=== PATIENT | female | born 1935 | race Caucasian/White ===

== ENCOUNTER 2017-02-07 16:14 | Inpatient (IN) | payer MEDICARE, BC ==
[~2017-02-07] VITALS: Ht 157.5 cm; Wt 54.4 kg
[~2017-02-07 16:14] MED LIST: NKM
--- NOTE | 2017-02-07 16:41 | Emergency Room Report ---
History of Present Illness General Chief Complaint: Chest Pain Source: Patient, EMS Present Illness HPI 82YOF BIBEMS with left sided chest pain and nausea for 2 hours. Started in car after being at restaurant with family. Non-radiating pain, was 7.10. Assoc with nausea/vomit Denies SOB, fever/chills, sweating Was given ASA and nitro by EMS with improvement Currently just feels "weak." Denies known PMHx. Not on ASA. EMS rhytym strip showed NSR, LAFB, LVH Allergies: Coded Allergies: No Known Allergies (Unverified , 02/07/17) Patient History Past Medical History: none Past Surgical History: none Pertinent Family History: none Social History: Denies: smoking, alcohol use, drug use Now: No Immunizations: UTD Reviewed Nursing Documentation: PMH: Agreed, PSxH: Agreed Nursing Documentation-PMH Past Medical History: No Stated History Review of Systems All Other Systems: negative except mentioned in HPI Physical Exam Vital Signs Date Time Temp Pulse Resp B/P (MAP) Pulse Ox O2 Delivery O2 Flow Rate FiO2 02/07/17 16:07 97.3 63 20 141/56 99 Nasal Cannula 4.0 Sp02 EP Interpretation: reviewed, normal General Appearance: normal inspection, well appearing, no apparent distress, alert, GCS 15, non-toxic, other - Weak appearing elderly lady Head: normocephalic, atraumatic Eyes: bilateral eye PERRL, bilateral eye EOMI ENT: normal ENT inspection, hearing grossly normal, normal voice Neck: normal inspection, full range of motion, supple, no bony tend Respiratory: normal inspection, lungs clear, normal breath sounds, no respiratory distress, no retraction, no wheezing Cardiovascular #1: regular rate, rhythm, no edema, no gallop, no JVD, no murmur , no rub Gastrointestinal: normal inspection, normal bowel sounds, non tender, soft, no guarding, no hernia Genitourinary: no CVA tenderness Musculoskeletal: normal inspection, back normal, normal range of motion, Monika' s Sign negative Neurologic: normal inspection, alert, oriented x3, responsive, speech normal Psychiatric: normal inspection, judgement/insight normal, mood/affect normal Skin: normal inspection, normal color, no rash Medical Decision Making Medicare Attestation I Matt Neves MD hereby attest that the medical record entry for date of service, 02/07/17 accurately reflects signatures/notations that I made in my capacity as MD when I treated/diagnosed the above listed Medicare beneficiary. I attest that this information is true, accurate and complete to the best of my knowledge. I understand that any falsification, omission, or concealment of material fact may subject me to administrative, civil, or criminal liability. This patient warrants hospital admission for extreme of age and has a condition that cannot be treated as outpatient. Diagnostic Impression: Primary Impression: Chest pain Qualified Codes: R07.89 - Other chest pain ER Course Labs: Mild lueks likely reactionary. H&H stable. Troponin 0. ECG with LAFB, LVH CXR no PTX or CHF or PNA Patient remains asymptomatic in ED Endorsed to PANEL Dr Gerard at 530pm for tele admit EKG Diagnostic Results Rate: normal Rhythm: other - Incomplete RBB, LAFB, LVH. ST Segments: other - TWI in V2 ASA given to the pt in ED: No Rhythm Strip Diag. Results EP Interpretation: yes Rate: 68 Rhythm: NSR, no PVC's, no ectopy Chest X-Ray Diagnostic Results Chest X-Ray Diagnostic Results : Chest X-Ray Ordered: Yes # of Views/Limited/Complete: 1 View Indication: Chest Pain EP Interpretation: Yes Interpretation: no consolidation, no effusion, no pneumothorax, no acute cardiopulmonary disease Impression: No acute disease Electronically Signed by: Dr Matt Neves MD Last Vital Signs Date Time Temp Pulse Resp B/P (MAP) Pulse Ox O2 Delivery O2 Flow Rate FiO2 02/07/17 16:07 97.3 63 20 141/56 99 Nasal Cannula 4.0 Status: improved Disposition: ADMITTED INPATIENT Condition: Serious MATT NEVES M.D. Feb 07, 2017 16:41
[2017-02-07 17:12] LABS: MEAN CORPUSCULAR HGB CONC 33.5 G/DL (32.0-36.0); MEAN CORPUSCULAR VOLUME 89 FL (80-99); MEAN PLATELET VOLUME 7.9 FL (6.5-10.1); PLATELET COUNT 207 K/UL (150-450); RED BLOOD COUNT 4.59 M/UL (4.20-5.40); RED CELL DISTRIBUTION WIDTH 12.2 % (11.6-14.8); WHITE BLOOD COUNT 12.1 K/UL (4.8-10.8)
[2017-02-07 17:18] LABS: ALANINE AMINOTRANSFERASE 13 U/L (3-33); ALBUMIN/GLOBULIN RATIO 1.4 (1.0-2.7); ANION GAP 12 (5-15); ASPARTATE AMINO TRANSFERASE 22 U/L (5-40); CALCIUM 9.6 mg/dL (8.6-10.2); CARBON DIOXIDE 26 mEQ/L (20-30); CHLORIDE 98 mEQ/L (98-107); CREATININE 0.8 mg/dL (0.5-0.9); HEMOLYSIS 3; POTASSIUM 4.1 mEQ/L (3.4-4.9); SODIUM 136 mEQ/L (135-145); TOTAL PROTEIN 7.1 g/dL (6.6-8.7); TROPONIN I < 0.30 ng/mL (<=0.30)
[2017-02-07 17:30] LABS: CKMB 1.9 ng/mL (< 3.8)
[2017-02-07 18:09] LABS: BAND NEUTROPHILS % (MANUAL) 0 % (0-8); BASOPHILS % (MANUAL) 1 % (0-2); EOSINOPHILS % (MANUAL) 0 % (0-3); LYMPHOCYTES % (MANUAL) 12 % (20-45); NEUTROPHILS % (MANUAL) 83 % (45-75); PLATELET ESTIMATE ADEQUATE; PLATELET MORPHOLOGY NORMAL; TOTAL CELLS COUNTED 100
[2017-02-07] MEDS ORDERED: Enalaprilat 2.5mg/2ml Inj IV PRN (18:15)
[2017-02-07] MEDS ORDERED: Nitroglycerin Subl 0.4mg tab (Bottle Of 25) SL PRN (18:15)
[2017-02-07] MEDS ORDERED: Morphine Sulfate 2mg/ml Inj IVP PRN (18:15)
[2017-02-07] MEDS ORDERED: Ketorolac 30mg Inj IV PRN (18:15)
[2017-02-07] MEDS ORDERED: Diltiazem 25mg/5ml IV PRN (18:15)
[2017-02-07] MEDS ORDERED: Miralax 17gm pkt ORAL PRN (18:15)
[2017-02-07] MEDS ORDERED: DuoNeb 0.5-3(2.5)mg/3ml neb HHN PRN (18:15)
[2017-02-07 19:13] VITALS: BP 129/44
[2017-02-07 21:29] VITALS: BP 131/91
[2017-02-07] MEDS: Heparin 5000 units/ml inj SUBQ SCH (22:00)
[2017-02-07 22:35] VITALS: BP 135/70
[2017-02-08] VITALS (7 sets, daily range): BP systolic 104–139; BP diastolic 44–65
[2017-02-08 05:43] LABS: EOSINOPHILS % (AUTO) 0.7 % (0.0-3.0); LYMPHOCYTES % (AUTO) 28.9 % (20.0-45.0); MEAN CORPUSCULAR HEMOGLOBIN 29.4 PG (27.0-31.0); MEAN CORPUSCULAR HGB CONC 32.6 G/DL (32.0-36.0); MEAN CORPUSCULAR VOLUME 90 FL (80-99); MEAN PLATELET VOLUME 7.6 FL (6.5-10.1); MONOCYTES % (AUTO) 8.9 % (1.0-10.0); NEUTROPHILS % (AUTO) 60.5 % (45.0-75.0); PLATELET COUNT 227 K/UL (150-450); RED BLOOD COUNT 4.26 M/UL (4.20-5.40); WHITE BLOOD COUNT 6.5 K/UL (4.8-10.8)
[2017-02-08 06:00] LABS: CHOLESTEROL/HDL RATIO 3.4 (3.3-4.4); CRP QUANT 0.4 mg/dL (< 0.5); INR 0.9 (0.9-1.1); PROTHROMBIN TIME 9.9 SEC (9.30-11.50); TROPONIN I < 0.30 ng/mL (<=0.30)
[2017-02-08 06:11] LABS: THYROID STIMULATING HORMONE 2.58 uIU/mL (0.300-4.500)
[2017-02-08] MEDS: Aspirin Baby 81mg ORAL SCH (10:22)
[2017-02-08] MEDS: Heparin 5000 units/ml inj SUBQ SCH ×2 (10:40→21:00)
--- NOTE | 2017-02-08 10:40 | Diagnostic Imaging Report ---
Indication: Dyspnea Comparison: None A single view chest radiograph was obtained. Findings: Cardiomediastinal appearance is within normal limits for age. Pulmonary vascularity is appropriate. The diaphragmatic contour is smooth and costophrenic angles are sharp. No pleural effusions are identified. The bones are unremarkable. Impression: No acute findings
--- NOTE | 2017-02-08 15:16 | Consultation ---
History of Present Illness General Date patient seen: Feb 07, 2017 Chief Complaint: Chest Pain Referring physician: Dr. Cleveland Reason for Consultation: chest pain Present Illness HPI 82 year old without any pmhx presented to ER with CC of left sided chest pain and nausea for 2 hours. The pain was on-radiating pain, was 7.10, associated with nausea/vomit Denies SOB, fever/chills, sweating. she was given ASA and nitro by EMS with improvement. she is admitted to telemetry for evaluation of ACS. Allergies: Coded Allergies: No Known Allergies (Unverified , 02/07/17) Medication History Scheduled No Known Medications* (NKM - No Known Medications*), 0 ., (Reported) Patient History Healthcare decision maker Resuscitation status Full Code Advanced Directive on File Past Medical/Surgical History Past Medical/Surgical History: (1) No pertinent past medical history Review of Systems Constitutional: Reports: no symptoms Eye: Reports: no symptoms ENT: Reports: no symptoms Respiratory: Reports: no symptoms Cardiovascular: Reports: no symptoms Physical Exam General Appearance: WD/WN Lines, tubes and drains: peripheral, trach Neck: non-tender, normal alignment Respiratory/Chest: chest wall non-tender, lungs clear Breasts: no masses Cardiovascular/Chest: normal peripheral pulses, normal rate Abdomen: hyperactive bowel sounds Genitourinary/Rectal: normal genital exam Extremities: normal range of motion, non-tender Last 24 Hour Vital Signs Date Time Temp Pulse Resp B/P (MAP) Pulse Ox O2 Delivery O2 Flow Rate FiO2 02/08/17 12:00 97.3 74 20 121/57 98 Room Air 02/08/17 08:23 73 16 Room Air 02/08/17 08:00 96.8 60 18 126/58 98 Room Air 02/08/17 04:00 97.5 61 16 139/65 97 Room Air 02/08/17 04:00 77 02/08/17 00:00 74 02/08/17 00:00 97.5 68 12 104/44 97 Room Air 02/07/17 22:35 97.5 75 18 135/70 97 Room Air 02/07/17 21:30 97.9 73 21 131/91 100 Room Air 4.0 02/07/17 21:29 97.9 73 21 131/91 100 Room Air 02/07/17 19:13 98.4 68 18 129/44 96 02/07/17 16:53 60 16 Room Air 02/07/17 16:07 97.3 63 20 141/56 99 Nasal Cannula 4.0 Laboratory Tests Test 02/07/17 16:49 02/07/17 17:25 02/08/17 04:15 White Blood Count 12.1 K/UL (4.8-10.8) H 6.5 K/UL (4.8-10.8) Red Blood Count 4.59 M/UL (4.20-5.40) 4.26 M/UL (4.20-5.40) Hemoglobin 13.7 G/DL (12.0-16.0) 12.5 G/DL (12.0-16.0) Hematocrit 41.0 % (37.0-47.0) 38.4 % (37.0-47.0) Mean Corpuscular Volume 89 FL (80-99) 90 FL (80-99) Mean Corpuscular Hemoglobin 30.0 PG (27.0-31.0) 29.4 PG (27.0-31.0) Mean Corpuscular Hemoglobin Concent 33.5 G/DL (32.0-36.0) 32.6 G/DL (32.0-36.0) Red Cell Distribution Width 12.2 % (11.6-14.8) 12.0 % (11.6-14.8) Platelet Count 207 K/UL (150-450) 227 K/UL (150-450) Mean Platelet Volume 7.9 FL (6.5-10.1) 7.6 FL (6.5-10.1) Neutrophils (%) (Auto) % (45.0-75.0) 60.5 % (45.0-75.0) Lymphocytes (%) (Auto) % (20.0-45.0) 28.9 % (20.0-45.0) Monocytes (%) (Auto) % (1.0-10.0) 8.9 % (1.0-10.0) Eosinophils (%) (Auto) % (0.0-3.0) 0.7 % (0.0-3.0) Basophils (%) (Auto) % (0.0-2.0) 1.0 % (0.0-2.0) Differential Total Cells Counted 100 Neutrophils % (Manual) 83 % (45-75) H Lymphocytes % (Manual) 12 % (20-45) L Monocytes % (Manual) 4 % (1-10) Eosinophils % (Manual) 0 % (0-3) Basophils % (Manual) 1 % (0-2) Band Neutrophils 0 % (0-8) Platelet Estimate Adequate Platelet Morphology Normal Red Blood Cell Morphology Normal Sodium Level 136 mEQ/L (135-145) Potassium Level 4.1 mEQ/L (3.4-4.9) Chloride Level 98 mEQ/L (98-107) Carbon Dioxide Level 26 mEQ/L (20-30) Anion Gap 12 (5-15) Blood Urea Nitrogen 19 mg/dL (7-23) Creatinine 0.8 mg/dL (0.5-0.9) Estimat Glomerular Filtration Rate mL/min (>60) Glucose Level 120 mg/dL (74-106) H Calcium Level 9.6 mg/dL (8.6-10.2) Total Bilirubin 0.4 mg/dL (0.0-1.2) Aspartate Amino Transf (AST/SGOT) 22 U/L (5-40) Alanine Aminotransferase (ALT/SGPT) 13 U/L (3-33) Alkaline Phosphatase 91 U/L (35-104) Total Creatine Kinase 77 U/L (26-140) Creatine Kinase MB 1.9 ng/mL (< 3.8) Creatine Kinase MB Relative Index 2.4 Troponin I < 0.30 ng/mL (<=0.30) < 0.30 ng/mL (<=0.30) Pro-B-Type Natriuretic Peptide 274 pg/mL (0-450) Total Protein 7.1 g/dL (6.6-8.7) Albumin 4.2 g/dL (3.5-5.2) Globulin 2.9 g/dL Albumin/Globulin Ratio 1.4 (1.0-2.7) Urine Opiates Screen Negative (NEGATIVE) Urine Barbiturates Screen Negative (NEGATIVE) Phencyclidine (PCP) Screen Negative (NEGATIVE) Urine Amphetamines Screen Negative (NEGATIVE) Urine Benzodiazepines Screen Negative (NEGATIVE) Urine Cocaine Screen Negative (NEGATIVE) Urine Marijuana (THC) Screen Negative (NEGATIVE) Prothrombin Time 9.9 SEC (9.30-11.50) Prothromb Time International Ratio 0.9 (0.9-1.1) Activated Partial Thromboplast Time 25 SEC (23-33) C-Reactive Protein, Quantitative 0.4 mg/dL (< 0.5) Triglycerides Level 65 mg/dL (< 150) Cholesterol Level 202 mg/dL (< 200) H LDL Cholesterol 129 mg/dL (60-99) H HDL Cholesterol 60 mg/dL (> 60) Cholesterol/HDL Ratio 3.4 (3.3-4.4) Thyroid Stimulating Hormone (TSH) 2.580 uIU/mL (0.300-4.500) Height (Feet): 5 Height (Inches): 2.00 Weight (Pounds): 120 Medications Current Medications Medications (Trade) Dose Ordered Sig/Alexis Route PRN Reason Start Time Stop Time Status Last Admin Dose Admin Acetaminophen (Tylenol) 650 mg Q4H PRN ORAL FEVER 02/07/17 18:15 03/09/17 18:14 02/08/17 04:18 Albuterol/ Ipratropium (DuoNeb 0.5-3(2.5)mg/3ml) 3 ml Q4H PRN HHN Shortness of Breath 02/07/17 18:15 02/12/17 18:14 Aspirin (ASA) 162 mg DAILY ORAL 02/08/17 09:00 03/10/17 08:59 02/08/17 10:22 Diltiazem HCl (Cardizem) 10 mg Q1H PRN IV HR > 120 02/07/17 18:15 03/09/17 18:14 Enalaprilat (Vasotec) 2.5 mg Q6H PRN IV SBP > 160 02/07/17 18:15 03/09/17 18:14 Heparin Sodium (Porcine) (Heparin 5000 units/ml) 5,000 units EVERY 12 HOURS SUBQ 02/07/17 22:00 03/09/17 21:59 02/08/17 10:40 Morphine Sulfate (Morphine Sulfate) 2 mg Q4H PRN IVP severe Pain (Pain Scale 7-10) 02/07/17 18:15 02/14/17 18:14 Nitroglycerin (Ntg) 0.4 mg Every 5 Minutes PRN SL Prn Chest Pain 02/07/17 18:15 10/7/17 18:14 Ondansetron HCl (Zofran) 4 mg Q6H PRN IVP Nausea & Vomiting 02/07/17 18:15 03/09/17 18:14 Pantoprazole (Protonix) 40 mg DAILY ORAL 02/08/17 09:00 03/10/17 08:59 02/08/17 10:22 Polyethylene Glycol (Miralax) 17 gm DAILYPRN PRN ORAL Constipation 02/07/17 18:15 03/09/17 18:14 Temazepam (Restoril) 15 mg HSPRN PRN ORAL Insomnia 02/07/17 18:15 02/14/17 18:14 Assessment/Plan Problem List: (1) ACS (acute coronary syndrome) ICD Codes: I24.9 - Acute ischemic heart disease, unspecified SNOMED: [id number] Assessment/Plan serial ekg, troponin echo cardiology to see symptomatic treatment FRANCISCO HUA Feb 08, 2017 15:16
--- NOTE | 2017-02-08 15:31 | History & Physical ---
History and Physical History & Physicial job # [id number] Carlos Gerard MD Feb 08, 2017 15:31
--- NOTE | 2017-02-08 19:12 | Cardiology Progress Note ---
Assessment/Plan Assessment/Plan cp no mi not want to stay over week end ambualte in am iif not cp maybe ok to dc home nad have pt fuw with miguel thomas at [facility] Objective Last 24 Hour Vital Signs Date Time Temp Pulse Resp B/P (MAP) Pulse Ox O2 Delivery O2 Flow Rate FiO2 02/08/17 16:00 97.7 71 20 120/54 97 Nasal Cannula 02/08/17 16:00 73 02/08/17 12:00 66 02/08/17 12:00 97.3 74 20 121/57 98 Room Air 02/08/17 08:23 73 16 Room Air 02/08/17 08:00 96.8 60 18 126/58 98 Room Air 02/08/17 08:00 65 02/08/17 04:00 97.5 61 16 139/65 97 Room Air 02/08/17 04:00 77 02/08/17 00:00 74 02/08/17 00:00 97.5 68 12 104/44 97 Room Air 02/07/17 22:35 97.5 75 18 135/70 97 Room Air 02/07/17 21:30 97.9 73 21 131/91 100 Room Air 4.0 02/07/17 21:29 97.9 73 21 131/91 100 Room Air 02/07/17 19:13 98.4 68 18 129/44 96 Intake and Output 02/08/17 02/09/17 19:00 07:00 # Voids 3 Laboratory Tests Test 02/08/17 04:15 White Blood Count 6.5 K/UL (4.8-10.8) Red Blood Count 4.26 M/UL (4.20-5.40) Hemoglobin 12.5 G/DL (12.0-16.0) Hematocrit 38.4 % (37.0-47.0) Mean Corpuscular Volume 90 FL (80-99) Mean Corpuscular Hemoglobin 29.4 PG (27.0-31.0) Mean Corpuscular Hemoglobin Concent 32.6 G/DL (32.0-36.0) Red Cell Distribution Width 12.0 % (11.6-14.8) Platelet Count 227 K/UL (150-450) Mean Platelet Volume 7.6 FL (6.5-10.1) Neutrophils (%) (Auto) 60.5 % (45.0-75.0) Lymphocytes (%) (Auto) 28.9 % (20.0-45.0) Monocytes (%) (Auto) 8.9 % (1.0-10.0) Eosinophils (%) (Auto) 0.7 % (0.0-3.0) Basophils (%) (Auto) 1.0 % (0.0-2.0) Prothrombin Time 9.9 SEC (9.30-11.50) Prothromb Time International Ratio 0.9 (0.9-1.1) Activated Partial Thromboplast Time 25 SEC (23-33) Troponin I < 0.30 ng/mL (<=0.30) C-Reactive Protein, Quantitative 0.4 mg/dL (< 0.5) Triglycerides Level 65 mg/dL (< 150) Cholesterol Level 202 mg/dL (< 200) H LDL Cholesterol 129 mg/dL (60-99) H HDL Cholesterol 60 mg/dL (> 60) Cholesterol/HDL Ratio 3.4 (3.3-4.4) Thyroid Stimulating Hormone (TSH) 2.580 uIU/mL (0.300-4.500) AYLEEN ESCALANTE Feb 08, 2017 19:12
[2017-02-09] VITALS: BP 126/63
[2017-02-09 04:00] VITALS: BP 146/58
--- NOTE | 2017-02-09 04:30 | Consultation ---
DATE OF CONSULTATION: 02/08/2017 CHIEF COMPLAINT: Abdominal pain. HISTORY OF PRESENT ILLNESS: This is a pleasant 81-year-old female, who was brought by EMS complaining of left-sided chest pain and nausea for two hours prior to admission. Apparently, the patient was in a restaurant with her family and all of a sudden complained of some chest pain and felt nauseous. 911 was called, the EMS arrived. They gave her some aspirin and some nitroglycerin, which gave some improvement. Since then, the patient was transferred to ER at [facility]. PAST SURGICAL HISTORY: None. MEDICATIONS: Please see medication reconciliation list. ALLERGIES: No known drug allergy. SOCIAL HISTORY: The patient denies any tobacco, alcohol, or drug abuse. FAMILY HISTORY: Noncontributory. REVIEW OF SYSTEMS: A 10-point review of system was performed and pertinent positives in history of present illness. PHYSICAL EXAMINATION: VITAL SIGNS: Temperature is 97.7 degrees, pulse 70, respirations 20, blood pressure 120/54. HEENT: Normocephalic and atraumatic. Sclerae anicteric. NECK: Supple. No lymphadenopathy. CARDIOVASCULAR: Regular rate and rhythm. Plus S1 and S2. No obvious murmur. LUNGS: Clear to auscultation bilaterally. ABDOMEN: Soft and nontender. No rebound. No guarding. No peritoneal sign. EXTREMITIES: No cyanosis. No clubbing. No edema. NEUROLOGIC: Nonfocal. SKIN: No obvious rash. LABORATORY AND DIAGNOSTIC DATA: White blood cell 6.5, hemoglobin 12, hematocrit 38.4, and platelet count is 227,000. Chem-7, sodium 136, potassium 4.1, BUN is 19, creatinine 0.8, and glucose is 120. Troponin less than 0.3 x2. ASSESSMENT AND PLAN: This is a 81-year-old patient, admitted to the hospital complaining of chest pain and also nausea. At this time, there are no alarming signs or symptoms in terms of GI standpoint. There is no abnormal liver function test. There is no anemia. PLAN: Plan is to have the patient to be seen by Cardiology and followed by Cardiology. We will start the patient on Protonix. We will consider doing endoscopy on Saturday if the patient is cleared by Cardiology. I want to thank Dr. Gerard for this kind referral. Bal Rojelio Epps DR: Marquise JOB#: [id number] CC: Carlos Gerard M.D.; Fax#: [phone]
--- NOTE | 2017-02-09 04:45 | History and Physical Report ---
DATE OF ADMISSION: 02/07/2017 CHIEF COMPLAINT: Chest pain associated with nausea and vomiting. HISTORY OF PRESENT ILLNESS: This is a 81-year-old very delightful female with past medical history significant for right breast cancer, status post lumpectomy about 25 years ago with radiation therapy. The patient denies any history of coronary artery disease, diabetes, or high blood pressure, presented to emergency room, complained about the chest pain associated with nausea and vomiting about two hours prior to admission. The patient's pain started while she was in a car after she had a meal in a restaurant associated with the neighbor. No radiating pain. The pain was 7/10. Denies any nausea or vomiting. Denies any fever or chills. Shortly after initial evaluation in the field by EMS, the patient was transferred to the hospital. Nitroglycerin was given and aspirin was given en route to the hospital. After initial evaluation in the emergency room, the patient was admitted to the hospital with chest pain, possible acute coronary syndrome. PAST MEDICAL HISTORY/PAST SURGICAL HISTORY: Significant for right breast cancer, status post lumpectomy about 25 years ago and status post radiation therapy. MEDICATIONS: Medications at home, none. ALLERGIES: No known drug allergies. SOCIAL HISTORY: The patient denies smoking, alcohol, or drugs, follows up with the primary care at [facility] called Dr. Fuentes, who she sees once a year. FAMILY HISTORY: Father had a history of diabetes, and mother had a history of brain cancer, who also. REVIEW OF SYSTEMS: Mostly as above. Denies any dysuria, frequency, hematuria, or hematochezia. Denies any hemoptysis or hematochezia. Denies any suicidal or homicidal ideation. Complained of nausea and vomiting. Denies any loss of consciousness. Denies any double vision. PHYSICAL EXAMINATION: VITAL SIGNS: On admission from the ER, significant for temperature 97.3, pulse of 63, respirations 20, and blood pressure 141/56, repeated one was 129/44. GENERAL: The patient is awake, responsive, no acute distress. HEENT: Pupils are reactive to light. Extraocular movements are intact. NECK: Supple. No JVD. LUNGS: Good air entry. No wheezing or rales. HEART: S1 and S2. Regular rhythm. No gallops. ABDOMEN: Soft, nondistended, and nontender. Positive bowel sounds. RECTAL: Refused and deferred. GENITOURINARY: Refused and deferred. EXTREMITIES: No cyanosis, clubbing, or edema. NEUROLOGIC: Cranial nerves II through XII are grossly normal. The patient is moving all extremities. Gait is intact. PSYCHIATRIC: Mood and affect are intact. LABORATORY AND DIAGNOSTIC DATA: Laboratory on admission, WBC of 12.1, hemoglobin 13, hematocrit 41, and platelets 207,000. Sodium is 139, potassium 4.6, chloride 198, bicarbonate 26, BUN 19, creatinine 0.8, and glucose 120. First troponin is less than 0.03. CRP is 0.4. Pro-BNP of 274. Cholesterol is at 202. PT of 9.9, INR 0.9, and PTT of 25. Urine drug screen is all negative. Chest x-ray, no acute findings. EKG is significant for normal sinus rhythm, ventricular rate of 68, and left atrial enlargement, and incomplete right bundle-branch block. No ST-elevation was identified, left anterior fascicular block, left ventricular hypertrophy. Echocardiogram was done, preliminary result shows ejection fraction of 55% to 60% with no significant left ventricular hypertrophy, trace tricuspid regurgitation, and trace pulmonic regurgitation. ASSESSMENT: 1. Chest pain, possible acute coronary syndrome versus gastrointestinal etiology such as peptic ulcer versus gastroesophageal reflux disease. 2. History of right breast cancer, status post lumpectomy and radiation therapy. 3. Leukocytosis. PLAN: Admit the patient to telemetry. We will follow up with the Cardiology consultation, Pulmonary consultation with Dr. Abdalla. Serial cardiac enzymes. Monitor laboratory closely. Deep venous thrombosis prophylaxis. Heparin subcutaneous. Nitrostat as needed for chest pain and we will monitor laboratory in the morning. Carlos Gerard M.D. DR: Rose JOB#: [id number] CC:
--- NOTE | 2017-02-09 07:15 | Consultation ---
REFERRING PHYSICIAN: Carlos Gerard M.D. REASON FOR REFERRAL: Chest pain. HISTORY OF PRESENT ILLNESS: This is a 81-year-old female who presented to the hospital because of chest pain. She does not have any chest pain right now. The pain she is not able to explain is above the left breast, it was intermittent at times. When she was brought to the emergency room by a neighbor and on the drive here, she apparently got nauseated and vomited. The emergency room physician's data indicated the patient had chest pain for approximately 2 hours, it started in the car after being in a restaurant with family members, and then subsequently was brought in by EMS because of the left pain, but that did not completely clear. The patient tells me the pain was not radiating. There was no associated shortness of breath. No PND. No orthopnea. No palpitations. She usually does not walk very much, but what ever walking she does, does not cause any shortness of breath or chest pains. There is no PND. No orthopnea. She has never had any heart problems before. PAST MEDICAL HISTORY: Prediabetes and borderline hyperlipidemia. No heart attack. No cancer. No stroke, hepatitis, tuberculosis, asthma, emphysema, ulcers, kidney problems, liver problems, thyroid problems, anemia, arthritis, and no prior heart problems. She is usually followed by [facility]. SOCIAL HISTORY: She does not smoke and does not drink alcoholic beverages. She lives by herself. REVIEW OF SYSTEMS: Gastrointestinal: Negative. Genitourinary: Negative. Pulmonary: Negative. Constitution: Negative. Neurological: Negative. Cardiac: As mentioned in the history of present illness. PHYSICAL EXAMINATION: GENERAL: Elderly female, in no respiratory distress. NECK: Supple. No jugular venous distention. No abdominojugular reflux noted. LUNGS: Clear to auscultation and percussion. CARDIAC: S1 is normal. S2 is normal. Regular rate and rhythm. No heaves, thrills, or gallops noted. CHEST WALL: Nontender to reproduce the patient's chest pain. ABDOMEN: Soft and nontender. Positive bowel sounds. EXTREMITIES: There is no clubbing, cyanosis, or edema. LABORATORY AND DIAGNOSTIC DATA: The chest x-ray shows no acute findings. Her echocardiogram, preliminary report, shows ejection fraction of 55% to 60%, no segmental wall motion abnormalities. Her electrocardiogram also shows incomplete right bundle-branch conduction defect with some changes in the T-waves in V1 and V2. There are no old EKGs for me to compare. Her cardiac enzymes, 2 sets are negative. ProBNP was 274. Total cholesterol was 202 with LDL of 129, HDL of 60. TSH of 2.58. Sodium 136, potassium 4.1, chloride 98, and bicarbonate 26. White count of 6.9, hemoglobin of 12.5, platelet count of 227 with 83 polys, 12 lymphs were noted. INR 0.9 and PTT of 25. Toxicology screen was negative. ASSESSMENT: 1. Atypical chest pain. No evidence of myonecrosis. 2. Borderline hypertension. 3. Borderline diabetes. PLAN: Dr. Gerard, this patient was seen in cardiac consultation. The patient's preliminary echocardiogram is unremarkable. Her EKG shows some T-wave abnormalities, which may be related to incomplete right bundle branch that she is having. She no longer has the chest pain. She does not want to stay in the hospital beyond tomorrow. She wants to leave. If she is able to ambulate around the [place] and if she does not have any chest pain, I think it may be okay for her to have future testing done by her usual doctors at [facility] where she usually is followed. If she has any chest pains, to stay for stress testing here. Jean Paul Ayoub M.D. DR: Leticia JOB#: [id number] CC:
--- NOTE | 2017-02-09 07:34 | Pulmonology Progress Note ---
Assessment/Plan Assessment/Plan ASSESSMENT chest pain r/o ACS leukocytosis-resolved hypercholesteremia PLAN OF CARE tele serial troponin negative ECG with NSR no acute ST changes seen and evaluated by cardio patient was r/o for acute [place] ECHO with wET96-39% and RVSP of 14 DVT prophylaxis pain management with Nitro prn and Ms- pain free lipid panel with elevated TC 202 and LDL 129 educated on low fat low cholesterol diet recommended to start statin but pt reluctant and will talk with her PCP tox screen negative CXR negative O2 HHN prn pulse ox stable on RA patient does not want to stay over weekend for stress test per cardio can be dc if walks in hallway without chest pain and fup next week by PMD/cardio in [facility] case discussed and evaluated by supervising physician Subjective Allergies: Coded Allergies: No Known Allergies (Unverified , 02/07/17) Subjective denies CP, SOB slept well SR on tele Objective Last 24 Hour Vital Signs Date Time Temp Pulse Resp B/P (MAP) Pulse Ox O2 Delivery O2 Flow Rate FiO2 02/09/17 04:00 97.6 56 19 146/58 97 Room Air 02/09/17 03:37 61 02/09/17 00:00 70 02/09/17 00:00 97.6 71 19 126/63 97 Room Air 02/08/17 20:12 98.0 74 20 139/63 97 Room Air 02/08/17 20:00 71 02/08/17 19:52 70 16 Room Air 02/08/17 16:00 97.7 71 20 120/54 97 Nasal Cannula 02/08/17 16:00 73 02/08/17 12:00 66 02/08/17 12:00 97.3 74 20 121/57 98 Room Air 02/08/17 08:23 73 16 Room Air 02/08/17 08:00 96.8 60 18 126/58 98 Room Air 02/08/17 08:00 65 General Appearance: no acute distress HEENT: normocephalic, atraumatic, anicteric, mucous membranes moist, PERRL Respiratory/Chest: lungs clear, no respiratory distress, no accessory muscle use Cardiovascular: normal peripheral pulses, normal rate, regular rhythm, no JVD Abdomen: normal bowel sounds, soft, non tender, non distended Genitourinary: normal external genitalia Extremities: no edema, pedal pulses normal Skin: no rash Neurologic/Psychiatric: no motor/sensory deficits, alert, oriented x 3, responsive, normal mood/affect Lymphatic: no neck adenopathy Musculoskeletal: normal muscle bulk Current Medications Medications (Trade) Dose Ordered Sig/Alexis Route PRN Reason Start Time Stop Time Status Last Admin Dose Admin Acetaminophen (Tylenol) 650 mg Q4H PRN ORAL FEVER 02/07/17 18:15 03/09/17 18:14 02/08/17 04:18 Albuterol/ Ipratropium (DuoNeb 0.5-3(2.5)mg/3ml) 3 ml Q4H PRN HHN Shortness of Breath 02/07/17 18:15 02/12/17 18:14 Aspirin (ASA) 162 mg DAILY ORAL 02/08/17 09:00 03/10/17 08:59 02/08/17 10:22 Diltiazem HCl (Cardizem) 10 mg Q1H PRN IV HR > 120 02/07/17 18:15 03/09/17 18:14 Enalaprilat (Vasotec) 2.5 mg Q6H PRN IV SBP > 160 02/07/17 18:15 03/09/17 18:14 Heparin Sodium (Porcine) (Heparin 5000 units/ml) 5,000 units EVERY 12 HOURS SUBQ 02/07/17 22:00 03/09/17 21:59 02/08/17 10:40 Morphine Sulfate (Morphine Sulfate) 2 mg Q4H PRN IVP severe Pain (Pain Scale 7-10) 02/07/17 18:15 02/14/17 18:14 Nitroglycerin (Ntg) 0.4 mg Every 5 Minutes PRN SL Prn Chest Pain 02/07/17 18:15 03/09/17 18:14 Ondansetron HCl (Zofran) 4 mg Q6H PRN IVP Nausea & Vomiting 02/07/17 18:15 03/09/17 18:14 Pantoprazole (Protonix) 40 mg DAILY ORAL 02/08/17 09:00 03/10/17 08:59 02/08/17 10:22 Polyethylene Glycol (Miralax) 17 gm DAILYPRN PRN ORAL Constipation 02/07/17 18:15 03/09/17 18:14 Temazepam (Restoril) 15 mg HSPRN PRN ORAL Insomnia 02/07/17 18:15 02/14/17 18:14 [place] ([facility]),Niurka GARCIA Feb 09, 2017 07:34
[2017-02-09 08:35] VITALS: BP 125/58
[2017-02-09] MEDS: Heparin 5000 units/ml inj SUBQ SCH (09:00)
[2017-02-09] MEDS: Aspirin Baby 81mg ORAL SCH (09:59)
[2017-02-09 12:33] VITALS: BP 138/62
--- NOTE | 2017-02-09 14:20 | Cardiology Progress Note ---
Assessment/Plan Status: stable, progressing Status Narrative chest pain, n/v - Hemodynamically stable Symptoms have resolved - uncertain if cardiac origin. Pt has ruled out for myocardial infarction w/ negative troponins and EKGs Assessment/Plan Continue asa, ppi consider starting statin Outpt stress testing to r/o ischemia Subjective ROS Limited/Unobtainable: No Subjective Cardiology for Dr. Ayoub No chest pain, n/v or dyspnea, Objective Last 24 Hour Vital Signs Date Time Temp Pulse Resp B/P (MAP) Pulse Ox O2 Delivery O2 Flow Rate FiO2 02/09/17 12:33 97.0 62 18 138/62 98 Room Air 02/09/17 08:35 97.2 60 18 125/58 99 Room Air 02/09/17 08:18 69 18 Room Air 02/09/17 04:00 97.6 56 19 146/58 97 Room Air 02/09/17 03:37 61 02/09/17 00:00 70 02/09/17 00:00 97.6 71 19 126/63 97 Room Air 02/08/17 20:12 98.0 74 20 139/63 97 Room Air 02/08/17 20:00 71 02/08/17 19:52 70 16 Room Air 02/08/17 16:00 97.7 71 20 120/54 97 Nasal Cannula 02/08/17 16:00 73 General Appearance: WD/WN, no apparent distress, alert EENT: PERRL/EOMI Neck: supple, no JVD Rhythm: NSR Cardiovascular: normal rate, regular rhythm Respiratory/Chest: lungs clear Abdomen: non tender, soft Extremities: non-tender, no swelling Intake and Output 02/09/17 02/10/17 19:00 07:00 Intake Total 240 ml Balance 240 ml Intake Oral 240 ml # Voids 1 ARIEL GAMEZ Feb 09, 2017 14:20
[2017-02-09] MEDS ORDERED: NS 275ml ONE (15:43)
[2017-02-09] MEDS ORDERED: Tubing IV Secondary IV ONE (15:43)
[2017-02-09 15:55] VITALS: BP 127/56
--- NOTE | 2017-02-09 16:32 | Internal Med Progress Note ---
Subjective Date of Service: Feb 09, 2017 Physician Name Johnson,Noel Attending Physician Carlos Gerard MD Current Medications Medications (Trade) Dose Ordered Sig/Alexis Route PRN Reason Start Time Stop Time Status Last Admin Dose Admin Acetaminophen (Tylenol) 650 mg Q4H PRN ORAL FEVER 02/07/17 18:15 03/09/17 18:14 02/08/17 04:18 Albuterol/ Ipratropium (DuoNeb 0.5-3(2.5)mg/3ml) 3 ml Q4H PRN HHN Shortness of Breath 02/07/17 18:15 02/12/17 18:14 Aspirin (ASA) 162 mg DAILY ORAL 02/08/17 09:00 03/10/17 08:59 02/09/17 09:59 Diltiazem HCl (Cardizem) 10 mg Q1H PRN IV HR > 120 02/07/17 18:15 03/09/17 18:14 Enalaprilat (Vasotec) 2.5 mg Q6H PRN IV SBP > 160 02/07/17 18:15 03/09/17 18:14 Heparin Sodium (Porcine) (Heparin 5000 units/ml) 5,000 units EVERY 12 HOURS SUBQ 02/07/17 22:00 03/09/17 21:59 02/08/17 10:40 Morphine Sulfate (Morphine Sulfate) 2 mg Q4H PRN IVP severe Pain (Pain Scale 7-10) 02/07/17 18:15 02/14/17 18:14 Nitroglycerin (Ntg) 0.4 mg Every 5 Minutes PRN SL Prn Chest Pain 02/07/17 18:15 03/09/17 18:14 Ondansetron HCl (Zofran) 4 mg Q6H PRN IVP Nausea & Vomiting 02/07/17 18:15 03/09/17 18:14 Pantoprazole (Protonix) 40 mg DAILY ORAL 02/08/17 09:00 03/10/17 08:59 02/08/17 10:22 Polyethylene Glycol (Miralax) 17 gm DAILYPRN PRN ORAL Constipation 02/07/17 18:15 03/09/17 18:14 Temazepam (Restoril) 15 mg HSPRN PRN ORAL Insomnia 02/07/17 18:15 02/14/17 18:14 Allergies: Coded Allergies: No Known Allergies (Unverified , 02/07/17) ROS Limited/Unobtainable: No Constitutional: Reports: no symptoms HEENT: Reports: no symptoms Cardiovascular: Reports: chest pain Respiratory: Reports: no symptoms Gastrointestinal/Abdominal: Reports: no symptoms Genitourinary: Reports: no symptoms Neurologic/Psychiatric: Reports: no symptoms Subjective 81 YO F admitted with chest pain. Cover for Int Med-Dr Gerard. Objective Last Vital Signs Date Time Temp Pulse Resp B/P (MAP) Pulse Ox O2 Delivery O2 Flow Rate FiO2 02/09/17 15:55 97.2 63 18 127/56 96 Room Air 02/07/17 21:30 4.0 Intake and Output 02/09/17 02/10/17 19:00 07:00 Intake Total 240 ml Balance 240 ml Intake Oral 240 ml # Voids 2 Objective General: alert, cooperative, no distress, appears stated age Head: normocephalic, without obvious abnormality, atraumatic Eyes: conjunctivae/corneas clear. PERRL, EOM's intact Throat: lips, mucosa, and tongue normal. MMM Neck: supple, symmetrical, trachea midline, and no JVD Lungs: clear to auscultation bilaterally Heart: regular rate and rhythm, S1, S2 normal, no murmur, click, rub or gallop Abdomen: soft, non-tender, non-distended, bowel sounds normal; no masses or organomegaly Extremities: extremities normal, atraumatic, no cyanosis or edema Pulses: 2+ and symmetric Skin: skin color, texture, turgor normal; no rashes or lesions Neurologic: grossly normal, no focal deficits Assessment/Plan Problem List: (1) History of breast cancer (2) Chest pain Assessment & Plan: See cardiology note. Ruled out for acute [place]. Will require stress test?outpatient? Status: progressing NOEL JOHNSON Feb 09, 2017 16:32
--- NOTE | 2017-02-09 16:35 | General Progress Note ---
Assessment/Plan Assessment/Plan Assessment - atypical CP - resolved - dysphagia - resolved - B12 deficiency - L sided weakness Recommendations - cardiac w/u and clearance - If d/c'd today, can f/u with Dr. Epps as outpt Subjective Allergies: Coded Allergies: No Known Allergies (Unverified , 02/07/17) Subjective Feels well no chest pain no swallow difficulties Objective Last 24 Hour Vital Signs Date Time Temp Pulse Resp B/P (MAP) Pulse Ox O2 Delivery O2 Flow Rate FiO2 02/09/17 15:55 97.2 63 18 127/56 96 Room Air 02/09/17 12:33 97.0 62 18 138/62 98 Room Air 02/09/17 12:00 60 02/09/17 08:35 97.2 60 18 125/58 99 Room Air 02/09/17 08:18 69 18 Room Air 02/09/17 08:00 58 02/09/17 04:00 97.6 56 19 146/58 97 Room Air 02/09/17 03:37 61 02/09/17 00:00 70 02/09/17 00:00 97.6 71 19 126/63 97 Room Air 02/08/17 20:12 98.0 74 20 139/63 97 Room Air 02/08/17 20:00 71 02/08/17 19:52 70 16 Room Air Intake and Output 02/09/17 02/10/17 19:00 07:00 Intake Total 240 ml Balance 240 ml Intake Oral 240 ml # Voids 2 Height (Feet): 5 Height (Inches): 2.00 Weight (Pounds): 120 Objective WDWN NCAT supple CTA RRR abd soft, NT, ND no edema PUJA LUGO Feb 09, 2017 16:35
--- NOTE | 2017-02-09 17:25 | Cardiology Report ---
APPROVED REPORT EXAM: Two-dimensional and M-mode echocardiogram with Doppler and color Doppler. INDICATION LV function M-Mode DIMENSIONS IVSd0.9 (0.7-1.1cm)Left Atrium (MM)3.7 (1.6-4.0cm) LVDd4.0 (3.5-5.6cm)Aortic Root2.9 (2.0-3.7cm) PWd0.9 (0.7-1.1cm)Aortic Cusp Exc.1.5 (1.5-2.0cm) LVDs2.1 (2.5-4.0cm) PWs1.9 cm Normal left ventricular chamber size, systolic function and wall motion. Left ventricular ejection fraction estimated to be 55-60%. No evidence of left ventricular hypertrophy. Anterior Echo-free space, may be due to pericardial fat or effusion. All other cardiac chamber sizes are within normal limits. Focal aortic valve sclerosis with adequate cusp excursion. Thickened mitral valve leaflets with normal excursion. Mitral annulus and aortic root calcification. Pulmonic valve not well visualized. Normal tricuspid valve structure. IVC at normal size with physiologic collapse. A color flow and spectral Doppler study was performed and revealed: Mild aortic regurgitation. Mild mitral regurgitation. Mitral inflow velocities indicates normal LV diastolic function. Trace tricuspid regurgitation. Tricuspid systolic velocities suggests peak right ventricular systolic pressure of 14 mmHg. Trace pulmonic regurgitation present.
--- NOTE | 2017-02-11 13:39 | Discharge Summary ---
Discharge Summary Hospital Course Date of Admission Feb 07, 2017 at 17:03 Date of Discharge Feb 09, 2017 at 19:10 Admitting Diagnosis chest pain HPI Robyn Rankin is a 81 year old female who was admitted on Feb 07, 2017 at 17:03 for Chest Pain Hospital Course dc summary #[id number] Discharge Discharge Disposition Patient was discharged to Home (01) [facility]: [place] [facility]Niurka GARCIA Feb 11, 2017 13:39
--- NOTE | 2017-02-11 18:47 | Cardiology Report ---
APPROVED REPORT EKG Measurement Heart [id number] Normal sinus rhythm Possible Left atrial enlargement Incomplete right bundle branch block Left anterior fascicular block Left ventricular hypertrophy Cannot rule out Septal infarct, age undetermined Abnormal ECG
--- NOTE | 2017-02-12 02:15 | Discharge Summary 2 SIG ---
DATE OF ADMISSION: 02/07/2017 DATE OF DISCHARGE: 02/09/2017 REASON FOR ADMISSION: 81-year-old female with a history of right breast CA, status post lumpectomy and radiation, presented with complaint of left-sided chest pain and nausea for two hours. It started in the car after she was in the restaurant with her family. Pain was nonradiating, associated with nausea and vomiting. No fever. No chills. Denied shortness of breath, fever, chills, or sweating. She was given aspirin and nitroglycerin by paramedics with improvement. In the emergency department, vital signs were stable. She was placed on 4 liters supplemental oxygen with saturation of 99%. Mild leukocytosis noted. Hemoglobin and hematocrit were stable. Troponin was negative. EKG revealed left anterior fascicular block and left ventricular hypertrophy. Chest x-ray revealed no pneumothorax, no CHF, and no pneumonia. The patient was admitted to rule out acute coronary syndrome. ADMITTING DIAGNOSES: 1. Chest pain 2. Rule out acute coronary syndrome. 3. History of breast cancer, status post lumpectomy and radiation. 4. Leukocytosis, likely reactive. 5. Nausea. HOSPITAL COURSE: The patient was admitted to telemetry floor. Serial troponin were negative. EKG revealed no acute ischemic changes. The patient was ruled out for acute [place]. Echocardiogram revealed preserved ejection fraction of 55% to 60% and right ventricular systolic pressure of 14. DVT prophylaxis provided. Lipid panel revealed elevated total cholesterol and elevated LDL. The patient was educated on low-fat and low-cholesterol diet. Recommended to start statin. The patient was reluctant and desired first to talk with her primary care provider. Pain management was provided as needed with nitroglycerin and morphine. Pain-free. Toxicology screen was negative. Chest x-ray was negative for any acute cardiopulmonary pathology, Supplemental oxygen and pulmonary toilet were provided as needed. Pulse oximetry was stable on room air. Sandwich Counter Attendant seen and evaluated the patient. Sandwich Counter Attendant recommended stress test. The patient did not want to stay over the weekend for stress test. As per Cardiology, she may be discharged with outpatient follow up with primary doctor and parts assembler if no chest pain while walking in hallway. The patient had her primary care provider parts assembler at [facility]. The patient was able to walk in the hallway without associated chest pain or shortness of breath. Pulse oximetry was stable on room air. No dizziness, no palpitations. Patient remained in sinus rhythm on telemetry.Mild leucocytosis likely was reactive, resolved on the next day, GI consulted due to the nausea. Per GI, there was no alarming signs and symptoms from the GI standpoint. No abnormal liver function test. No anemia. The patient was started on proton-pump inhibitor. Tolerated diet, no further nausea. Patient was cleared for discharge. DISCHARGE DIAGNOSES: 1. Atypical chest pain likely of gastrointestinal origin. 2. History of right breast cancer. 3. Status post lumpectomy and radiation. 4. Hypercholesterolemia. 5. Leukocytosis -resolved. DISCHARGE MEDICATIONS: See medication reconciliation list. Continue aspirin and PPI. Consider starting statin. DISCHARGE INSTRUCTIONS: The patient to follow up with her primary medical doctor and parts assembler at [facility] next week. Recommended the patient to have a stress test. Carlos Gerard M.D. Niurka EvansMelodie galeano DR: Blaine JOB#: [id number] CC: YUE
== END 2017-02-09 19:10 | disposition home or self-care (01) | DRG 313 ==
LOC: EDBD 16:14 → EMR 16:59 → 2E 17:03 → EDBEDREQ 19:50
DX: R07.89 Other chest pain (principal); I45.10 Unspecified right bundle-branch block; R13.10 Dysphagia, unspecified; E53.0 Riboflavin deficiency; D72.829 Elevated white blood cell count, unspecified; R03.0 Elevated blood-pressure reading, without diagnosis of hypertension; R73.03 Prediabetes; E78.00 Pure hypercholesterolemia, unspecified; R53.1 Weakness; Z85.3 Personal history of malignant neoplasm of breast; Z92.3 Personal history of irradiation
CPT/HCPCS: 36415; 71010; 80053; 80061; 80300; 82550; 82553; 83880; 84443; 84484; 85007; 85025; 85610; 85730; 86140; 93005; 93306; 94664; 99285